=== PATIENT | female | born 1940 | race Caucasian/White ===

== ENCOUNTER → 2016-08-24 | Outpatient (REF) | payer MEDICARE | END | disposition home or self-care (01) | LOC: M LAB REF 16:24 | PROVIDERS: ATTEND Surgery | DX: L57.8 Other skin changes due to chronic exposure to nonionizing radiation (principal); L56.8 Other specified acute skin changes due to ultraviolet radiation ==

== ENCOUNTER → 2018-06-13 | Outpatient (REF) | payer MEDICARE | LOC: M LAB REF 17:33 | DX: L90.5 Scar conditions and fibrosis of skin (principal) | CPT/HCPCS: 88305 ==

== ENCOUNTER → 2018-07-09 | Outpatient (REF) | payer MEDICARE | LOC: M LAB REF 10:10 | DX: C44.622 Squamous cell carcinoma of skin of right upper limb, including shoulder (principal) | CPT/HCPCS: 88305 ==

== ENCOUNTER → 2020-03-16 | Outpatient (REF) | payer MEDICARE | LOC: M LAB REF 08:16 | PROVIDERS: ATTEND Nurse Practitioner Adult Health | DX: M13.80 Other specified arthritis, unspecified site (principal) ==

== ENCOUNTER → 2020-10-20 | Outpatient (CLI) | payer MEDICARE ==
--- NOTE | 2020-10-20 11:10 | REP ---
INDICATION: CAROTID ARTERY STENOSIS COMPARISON: 11/14/2018. TECHNIQUE: Real-time ultrasound evaluation and duplex Doppler interrogation of the extracranial carotid vasculature is performed. FINDINGS: There is mild to moderate plaquing and narrowing in both carotid bulbs extending into the internal and external carotid arteries. Luminal narrowing is less than 50%. There is no current evidence of hemodynamically significant stenosis of either internal carotid artery. Normal flow velocities are seen. The vertebral arteries demonstrate normal direction of flow. RIGHT LEFT Peak systolic velocity ICA 98.9 cm/s 96.9 cm/s End diastolic velocity ICA 27.8 cm/s 26.3 cm/s Peak systolic velocity CCA 50.8 cm/s 55.1cm/s Peak systolic velocity ECA 333.9 cm/s 226 cm/s ICA/CCA ratio 1.9 1.8 IMPRESSION: Bilateral luminal narrowing of the internal carotid arteries less than 50%. No evidence of hemodynamically significant stenosis. <Electronically signed by Kash Marroquin > 10/20/20 1106
== END ==
LOC: M RAD 10:19
PROVIDERS: ATTEND Nurse Practitioner Adult Health
DX: I65.29 Occlusion and stenosis of unspecified carotid artery (principal)

== ENCOUNTER → 2020-10-21 | Outpatient (CLI) | payer MEDICARE ==
--- NOTE | 2020-10-21 09:54 | REPMRS ---
Patient History The patient states she has not had a clinical breast exam in over a year. Patient is postmenopausal. Family history of breast cancer at age 50 or over in maternal aunt, breast cancer at age 50 or over in maternal aunt, breast cancer at age 50 or over in maternal aunt, breast cancer at age 50 or over in maternal aunt, breast cancer at age 50 or over in maternal aunt, breast cancer at age 50 or over in maternal aunt, breast cancer at age 50 or over in maternal aunt, breast cancer at age 51 in mother. Benign excisional biopsy. Digital Woman Screen Mammo: October 21, 2020 - Exam #: [id number] Bilateral CC and MLO view(s) were taken. Technologist: Saloni Squires, Technologist Prior study comparison: November 14, 2018, bilateral digital mammo screening bilat, performed at [facility]. November 13, 2017, bilateral digital woman screen mammo, performed at [facility]. June 21, 2016, bilateral digital mammo screening bilat, performed at [facility]. FINDINGS: The breast tissue is heterogeneously dense. This may lower the sensitivity of mammography. The Volpara volumetric breast density category is: C. There is a moderate amount of heterogeneously dense fibroglandular tissue which is fairly symmetric. There is no interval development of dominant mass, architectural distortion, or grouped microcalcification typical of malignancy. There has been no change in the appearance of the mammogram from the prior studies. 3-D tomosynthesis shows no additional findings. Assessment: BI-RADS/ACR category 1 mammogram. Negative Mammogram. Recommendation Routine screening mammogram of both breasts in 1 year (for women over age 40). This patient's [facility] Lifetime Breast Cancer RIsk is estimated at 3.8 %. This mammogram was interpreted with the aid of an FDA-approved computer-aided dectection system. Electronically Signed By: Wes Finnegan MD 10/21/20 0955
--- NOTE | 2020-10-21 15:37 | REP ---
INDICATION: F/U AAA. COMPARISON: 09/23/2019. TECHNIQUE: Real-time sonographic evaluation of the abdominal aorta performed. FINDINGS: There is again a distal abdominal aortic aneurysm with a maximum AP diameter 4.7 cm, previously 4.5 cm. Transverse diameter is in the range of 6 cm. Noncalcified thrombus is seen in the anterior aspect of the aneurysm, as on prior study. Residual patent posterior lumen has an AP diameter of 2.4 cm. There is moderate diffuse calcific plaque of the abdominal aorta. Maximum AP diameter of abdominal aorta: Proximal (at diaphragm):2.3 cm. At renal artery level: 2.1 cm Mid abdominal aorta:2.5 cm. Distal abdominal aorta (prebifurcation): 4.7 cm. Maximum AP diameter common iliac arteries: Right: 1.5 mm. Left: 1.2mm. IMPRESSION: Current measurements of the aneurysm of the distal abdominal aorta are approximately 4.7 x 6.0 cm, previously measured to be 4.5 x 5.7 cm. <Electronically signed by Kash Marroquin > 10/21/20 [id number]
== END ==
LOC: M WHC 08:20
PROVIDERS: ATTEND Nurse Practitioner Adult Health
DX: Z12.31 Encounter for screening mammogram for malignant neoplasm of breast (principal); I71.4 Abdominal aortic aneurysm, without rupture

== ENCOUNTER → 2020-11-10 | Outpatient (CLI) | payer MEDICARE ==
[~2020-11-10] MED LIST: ISOVUE-370 76% 100ML VIAL As Ordered ONE
--- NOTE | 2020-11-10 16:17 | REP ---
INDICATION: AAA. COMPARISON: Ultrasound 10/21/2020, 09/23/2019. TECHNIQUE: Bolus 100 mL Isovue 370 scanning through the abdomen with coronal and sagittal reconstructions. FINDINGS: Linear atelectatic change in the medial segment of the right middle lobe noted without any pleural effusion acute infiltrate or parenchymal mass there is some minor fibrotic changes in the lateral basal segment of the right lower lobe mid axillary line. No gross cardiomegaly pericardial thickening or pericardial effusion. No hiatal hernia. The liver and spleen are not enlarged. Gallbladder without calcified stone or mass. No focal mass, biliary dilatation nor upper abdominal ascites. Gallbladder without calcified stone or mass. Pancreas shows no mass, calcification or peripancreatic adenopathy nor fluid. Small bowel loops are fluid-filled but not abnormally dilated. Adrenal glands show slight thickening of limbs suggesting some adrenal hyperplasia but no nodule or mass. Upper pole of the kidney on the left with a a 2.2 cm simple cyst. There is no hydronephrosis or solid renal mass in either side. No stones. The infrarenal abdominal aorta shows a saccular aneurysm with patent channel posteriorly and large peripheral thrombus as on ultrasound. Has a length of 5.6 cm with maximum AP diameter of 4.7 cm and transverse diameter of 5.7 cm. Peripheral calcifications are noted. At the bifurcation common iliac arteries have diameters of 1.2 and 1.3 cm right and left. The aneurysm tapering only at the bifurcation. 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 Celiac axis and SMA show no aneurysm. The abdominal portion of colon included shows no colitis or diverticulitis. Bone windows show diffuse vacuum phenomenon throughout the lumbar and lower thoracic spine with sparing only T11-12 for the vacuum phenomena at all levels show marginal osteophytes and narrowing facet arthropathy lower lumbar spine. No spondylolysis. There is a dextro rotatory curvature of the lower thoracic upper lumbar region. IMPRESSION: 1. A saccular aneurysm of the distal abdominal aorta from below the infrarenal region to the bifurcation with maximum AP diameter 4.7 cm. Patent channel is posterior and there is fairly large amount of the anterior thrombus. No evidence of a leak. Transverse diameter 5.7 cm and length about 5.7 cm. 2. 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 3. Dextro rotatory thoracolumbar scoliotic curvature with diffuse degenerative the disc changes with sclerotic endplates and vacuum phenomenon. No compression fractures. 4. Liver, spleen, gallbladder, pancreas adrenal glands and kidneys are were unremarkable except for an upper pole renal cyst on the left, 2.2 cm. <Electronically signed by Moe Salguero > 11/10/20 [id number]
== END ==
LOC: M RAD 14:33
PROVIDERS: ATTEND Nurse Practitioner Adult Health
DX: I71.4 Abdominal aortic aneurysm, without rupture (principal)
CPT/HCPCS: 74160; Q9967

== ENCOUNTER → 2021-06-20 | Outpatient (CLI) | payer MEDICARE ==
--- NOTE | 2021-06-20 10:27 | REP ---
INDICATION: F/U AAA, S/P STENT COMPARISON: 10/21/2020 TECHNIQUE: Multiple ultrasonographic images of the abdominal aorta were obtained from the level of the celiac access to the aortoiliac bifurcation and the longitudinal and transverse scan planes along with color Doppler imaging. FINDINGS: The maximal AP dimension of the abdominal aorta as measured in the longitudinal scan plane is 5.3 cm in the infrarenal aorta and measuring 3 cm at the level of the renal artery. 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 IMPRESSION: Once again, there is an infrarenal abdominal aortic aneurysm which measures 5.3 cm in its AP dimension and 6.8 cm in length. On the latest prior examination I have for comparison the maximal AP dimension was 4.7 cm with a length of 6 cm. <Electronically signed by Juanito Bates > 06/20/21 [id number]
== END ==
LOC: M RAD 08:35
PROVIDERS: ATTEND Nurse Practitioner Adult Health
DX: I71.4 Abdominal aortic aneurysm, without rupture (principal)

== ENCOUNTER → 2022-06-29 | Outpatient (CLI) | payer MEDICARE ==
[~2022-06-29] MED LIST changes: +AMLO1TAB24 PO; +CARV25TA PO; +CLOP75TA2 PO; +ECOT81TA5 PO; -ISOVUE-370 76% 100ML VIAL As Ordered ONE; +LATA0.0015 OU; +METF-838 PO; +PRESCAP PO; +ROSU20TA5 PO; +TRAM50TA2 PO; +VITMTA PO
== END ==
LOC: M LABSMTC 12:55
PROVIDERS: ATTEND Anesthesiology
DX: Z01.812 Encounter for preprocedural laboratory examination (principal); Z20.822 Contact with and (suspected) exposure to COVID-19; Z53.9 Procedure and treatment not carried out, unspecified reason

== ENCOUNTER → 2022-07-03 | Outpatient (CLI) | payer MEDICARE | LOC: M LABSMTC 11:15 | PROVIDERS: ATTEND Anesthesiology | DX: Z01.812 Encounter for preprocedural laboratory examination (principal); Z20.822 Contact with and (suspected) exposure to COVID-19 ==

== ENCOUNTER 2022-07-04 07:14 | Day surgery (SDC) | payer MEDICARE ==
[~2022-07-04] VITALS: Ht 162.6 cm; Wt 52.6 kg
[~2022-07-04 07:14] MED LIST changes: +CEFUROXIME 1MG/0.1ML INTRACAMERAL INJ As Ordered ONE; +CYCLOPENTOLATE 1% OPHTH SOLN 2 ML BTL OS SCH; +LIDOCAINE 1% 1ML PF SYRINGE (OR EYE CASES) As Ordered ONE; +OFLOXACIN 0.3 % (OCUFLOX) OPTH SOL 5ML OS SCH; +PHENYLEPHRINE 2.5% OPHTH SOL 2ML OS SCH; +PROPARACAINE 0.5% OPHTH SOL 15ML OS ONE; +TROPICAMIDE 1% OPHTH SOLN 2ML OS SCH
[2022-07-04] MEDS ORDERED: BSS IRR 500ML/OMIDRIA 4ML IRR BAG (OR ONLY) As Ordered ONE (07:48)
[2022-07-04] MEDS ORDERED: MIDAZOLAM INJ 2MG/2ML VIAL (J2250 PER 1MG) As Ordered ONE (08:21)
[2022-07-04] MEDS ORDERED: fentaNYL 100 MCG/2 ML INJECTION As Ordered ONE (08:21)
[2022-07-04 10:02] VITALS: BP 116/56
== END 2022-07-04 10:25 | disposition home or self-care (01) ==
LOC: M SDC 07:14
PROVIDERS: ATTEND Ophthalmology
DX: H25.12 Age-related nuclear cataract, left eye (principal); I25.10 Atherosclerotic heart disease of native coronary artery without angina pectoris; I10 Essential (primary) hypertension; E78.5 Hyperlipidemia, unspecified; E11.9 Type 2 diabetes mellitus without complications; F32.A Depression, unspecified; F17.210 Nicotine dependence, cigarettes, uncomplicated; Z79.02 Long term (current) use of antithrombotics/antiplatelets; Z79.84 Long term (current) use of oral hypoglycemic drugs; Z79.899 Other long term (current) drug therapy; Z86.711 Personal history of pulmonary embolism; Z86.718 Personal history of other venous thrombosis and embolism; Z85.828 Personal history of other malignant neoplasm of skin; Z98.61 Coronary angioplasty status
CPT/HCPCS: 66984; J0697; J1097; J2250; J3010; V2632

== ENCOUNTER → 2022-09-06 | Outpatient (CLI) | payer MEDICARE ==
[~2022-09-06] MED LIST changes: -CEFUROXIME 1MG/0.1ML INTRACAMERAL INJ As Ordered ONE; -CYCLOPENTOLATE 1% OPHTH SOLN 2 ML BTL OS SCH; -LIDOCAINE 1% 1ML PF SYRINGE (OR EYE CASES) As Ordered ONE; -OFLOXACIN 0.3 % (OCUFLOX) OPTH SOL 5ML OS SCH; -PHENYLEPHRINE 2.5% OPHTH SOL 2ML OS SCH; -PROPARACAINE 0.5% OPHTH SOL 15ML OS ONE; -TROPICAMIDE 1% OPHTH SOLN 2ML OS SCH
== END ==
LOC: M RAD 08:08
PROVIDERS: ATTEND Nurse Practitioner Adult Health
DX: I71.40 Abdominal aortic aneurysm, without rupture, unspecified (principal)

== ENCOUNTER → 2023-01-17 | Outpatient (CLI) | payer MEDICARE | LOC: M WUC 13:21 | PROVIDERS: ATTEND Student in an Organized Health Care Education/Training Program | DX: J44.1 Chronic obstructive pulmonary disease with (acute) exacerbation (principal) ==

== ENCOUNTER → 2023-10-24 | Outpatient (CLI) | payer MEDICARE ==
[~2023-10-24] MED LIST changes: +AMLO1TAB25 PO; +LATA1DRO OU; -ROSU20TA5 PO; +ROSU20TA61 PO; +TRAZ-252 PO
== END ==
LOC: M PLAIMG 09:06
PROVIDERS: ATTEND Internal Medicine
DX: R91.1 Solitary pulmonary nodule (principal); J44.9 Chronic obstructive pulmonary disease, unspecified

== ENCOUNTER 2023-10-30 07:01 | Day surgery (SDC) | payer MEDICARE ==
[~2023-10-30] VITALS: Ht 162.6 cm; Wt 49.4 kg
[2023-10-30] MEDS: PROPARACAINE 0.5% OPHTH SOL 15ML OD ONE (07:15)
[2023-10-30] MEDS: ATROPINE SULFATE 1% OPHTH SOLN 2ML BTL OD SCH (07:35)
[2023-10-30] MEDS: PHENYLEPHRINE 2.5% OPHTH SOL 2ML OD SCH (07:35)
[2023-10-30] MEDS: TROPICAMIDE 1% OPHTH SOLN 15ML OD SCH (07:35)
[2023-10-30] MEDS: OFLOXACIN 0.3 % (OCUFLOX) OPTH SOL 5ML OD SCH (07:35)
[2023-10-30] MEDS ORDERED: fentaNYL 100 MCG/2 ML INJECTION As Ordered ONE (08:29)
[2023-10-30] MEDS: BSS IRR 500ML/OMIDRIA 4ML IRR BAG (OR ONLY) As Ordered ONE (08:31)
[2023-10-30] MEDS: LIDOCAINE 1% SDV 5ML VIAL As Ordered ONE (08:32)
[2023-10-30] MEDS: CEFUROXIME 1MG/0.1ML INTRACAMERAL INJ As Ordered ONE (08:32)
[2023-10-30] MEDS ORDERED: MIDAZOLAM INJ 2MG/2ML VIAL As Ordered ONE (08:33)
[2023-10-30] MEDS: TRYPAN BLUE 0.06 % 2.25 ML OPHTH SYR (VISIONBLUE) As Ordered ONE (08:37)
[2023-10-30 08:50] VITALS: BP 125/66; TEMP 97.7; O2SAT 96
== END 2023-10-30 09:15 | disposition home or self-care (01) ==
LOC: M SDC 07:01
PROVIDERS: ATTEND Ophthalmology
DX: H25.11 Age-related nuclear cataract, right eye (principal); I25.10 Atherosclerotic heart disease of native coronary artery without angina pectoris; I10 Essential (primary) hypertension; E78.5 Hyperlipidemia, unspecified; E11.9 Type 2 diabetes mellitus without complications; F32.A Depression, unspecified; J44.9 Chronic obstructive pulmonary disease, unspecified; F17.218 Nicotine dependence, cigarettes, with other nicotine-induced disorders; Z79.84 Long term (current) use of oral hypoglycemic drugs; Z79.899 Other long term (current) drug therapy; Z98.61 Coronary angioplasty status; Z85.828 Personal history of other malignant neoplasm of skin; Z86.711 Personal history of pulmonary embolism; Z86.718 Personal history of other venous thrombosis and embolism
CPT/HCPCS: 66984; J0697; J1097; J2250; J3010; V2632

== ENCOUNTER → 2023-12-10 | Outpatient (CLI) | payer MEDICARE | LOC: M WUC 13:41 | PROVIDERS: ATTEND Internal Medicine | DX: M25.511 Pain in right shoulder (principal) ==

== ENCOUNTER 2024-12-24 13:06 | Emergency (ER) | payer MEDICARE ==
[~2024-12-24] VITALS: Ht 162.6 cm; Wt 49.8 kg
[~2024-12-24 13:06] MED LIST changes: -ROSU20TA61 PO; +ROSU20TA86 PO
[2024-12-24 14:46] VITALS: TEMP 96.5
[2024-12-24 15:02] LABS: BASO # 0.1 10^3/uL (0.0-0.2); BASO % 0.6 % (0.0-1.0); EOS # 0.1 10^3/uL (0.0-0.5); HEMATOCRIT 43.7 % (36.0-47.0); HEMOGLOBIN 14.4 g/dl (12.0-15.5); LYMPH # 2.7 10^3/uL (1.5-5.0); LYMPH % 35.6 % (24.0-44.0); MEAN CORPUSCULAR HEMOGLOBIN 31.7 pg (27.0-33.0); MEAN CORPUSCULAR VOLUME 96.3 fl (80.0-96.0); MONO # 0.6 10^3/uL (0.0-0.8); MONO % 7.5 % (2.0-8.0); NEUTROPHILS # 4.2 10^3/uL (1.5-8.5); PLATELET COUNT, AUTOMATED 206 10^3/uL (150-450); RED BLOOD COUNT 4.54 10^6/uL (4.00-5.40); WHITE BLOOD COUNT 7.7 10^3/uL (4.0-10.0)
[2024-12-24 15:04] LABS: INR 0.92; PARTIAL THROMBOPLASTIN TIME 26.9 SECONDS (24.8-34.2); PROTHROMBIN TIME 12.7 SECONDS (12.5-14.5)
[2024-12-24 15:17] LABS: CK-MB VALUE MASS < 1.0 NG/ML (<3.6)
[2024-12-24 15:18] LABS: LIPASE 73 U/L (12-53)
[2024-12-24] MEDS: ASPIRIN 81MG CHEW TABLET PO ONE (15:18)
[2024-12-24 15:20] LABS: ALKALINE PHOSPHATASE 53 U/L (35-104); ALT/SGPT 19 U/L (7.0-40); AST/SGOT 29 U/L (<34); BILIRUBIN,DIRECT 0.1 MG/DL (<0.4); BILIRUBIN,TOTAL 0.5 MG/DL (0.3-1.2); BLOOD UREA NITROGEN 16 MG/DL (9-23); CALCIUM LEVEL 9.7 MG/DL (8.3-10.6); CARBON DIOXIDE LEVEL 29 MMOL/L (20-31); CHLORIDE LEVEL 105 MMOL/L (98-107); CREATININE FOR GFR 0.96 MG/DL (0.55-1.30); GLOMERULAR FILTRATION RATE 58.7 (>32); GLUCOSE, FASTING 118 MG/DL (74-106); POTASSIUM SERUM 4.5 MMOL/L (3.5-5.1); SODIUM LEVEL 141 MMOL/L (136-145); TOTAL PROTEIN 7.2 G/DL (5.7-8.2)
[2024-12-24 15:21] LABS: FREE T4 1.16 NG/DL (0.89-1.76)
[2024-12-24 15:22] LABS: THYROID STIMULATING HORMONE 1.192 uIU/ML (0.55-4.78)
[2024-12-24 15:25] LABS: CPK CREATINE PHOSPHOKINASE 72 U/L (34-145); MB/CK RELATIVE INDEX 1.38 (< OR =4)
[2024-12-24] MEDS ORDERED: ISOVUE-370 76% 100ML VIAL As Ordered ONE (15:48)
[2024-12-24 15:50] LABS: CK-MB VALUE MASS < 1.0 NG/ML (<3.6)
[2024-12-24 15:52] LABS: CPK CREATINE PHOSPHOKINASE 64 U/L (34-145); MB/CK RELATIVE INDEX 1.56 (< OR =4)
[2024-12-24 16:45] VITALS: O2SAT 95
[2024-12-24 17:30] VITALS: BP 170/86; O2SAT 97
== END 2024-12-24 17:55 | disposition home or self-care (01) ==
LOC: M ED 13:06
DX: R06.02 Shortness of breath (principal); R10.9 Unspecified abdominal pain; N28.1 Cyst of kidney, acquired; I10 Essential (primary) hypertension; E78.5 Hyperlipidemia, unspecified; Z90.89 Acquired absence of other organs; Z87.891 Personal history of nicotine dependence; Z88.8 Allergy status to other drugs, medicaments and biological substances; Z79.899 Other long term (current) drug therapy
CPT/HCPCS: 36415; 71046; 71275; 74177; 80047; 80048; 80076; 82550; 82553; 83690; 83880; 84439; 84443; 84484; 85025; 85610; 85730; 93005; 93041; 94760; 99285; Q9967

== ENCOUNTER → 2025-03-04 | Outpatient (CLI) | payer MEDICARE | LOC: M WUC 13:49 | PROVIDERS: ATTEND Physician Assistant | DX: M79.674 Pain in right toe(s) (principal); S92.514A Nondisplaced fracture of proximal phalanx of right lesser toe(s), initial encounter for closed fracture; X58.XXXA Exposure to other specified factors, initial encounter; Y92.9 Unspecified place or not applicable; Y93.9 Activity, unspecified; Y99.9 Unspecified external cause status; M19.071 Primary osteoarthritis, right ankle and foot ==

== ENCOUNTER → 2025-03-27 | Outpatient (CLI) | payer MEDICARE | LOC: M RAD 11:12 | PROVIDERS: ATTEND Internal Medicine | DX: R91.1 Solitary pulmonary nodule (principal); M41.9 Scoliosis, unspecified; I25.10 Atherosclerotic heart disease of native coronary artery without angina pectoris; I71.21 Aneurysm of the ascending aorta, without rupture; Z95.828 Presence of other vascular implants and grafts ==

== ENCOUNTER → 2025-06-02 | Outpatient (CLI) | payer MEDICARE | LOC: M PLAIMG 11:25 | PROVIDERS: ATTEND Internal Medicine | DX: R42 Dizziness and giddiness (principal); R29.6 Repeated falls; R53.1 Weakness; F03.90 Unspecified dementia, unspecified severity, without behavioral disturbance, psychotic disturbance, mood disturbance, and anxiety; I65.23 Occlusion and stenosis of bilateral carotid arteries ==